=== PATIENT | female | born 1955 | race Caucasian/White ===

== ENCOUNTER → 2017-02-08 | Outpatient (CLI) | payer OTHER ==
--- NOTE | ~2017-02-08 | BD1 ---
[facility] A Service [facility] RADIOLOGY TEXT RESULTS PATIENT: MATTHEW CHO LOCATION: [facility] : 51 UNIT #: [id number] AGE: [address]: Kennedy Tamayo MD SEX: F ORDER DR: [id number] [facility] [address] [place], [place] [address] [id number] O MR#: [id number] Acc #: [id number] NAME: MATTHEW CHO : 1955 SEX: F STUDY DATE/TIME: 02/08/2017 15:26 UNIT: [facility] ROOM: STUDY DESCRIPTION: BD Dexa Bone Dens 1+ Site Attending Physician: Kennedy Tamayo M.D. Referring Physician: Kennedy Tamayo M.D. Ordering Physician: Kennedy Tamayo M.D. Primary Care Physician: Kennedy Tamayo M.D. MEDICAL IMAGING REPORT This report is preliminary unless electronic signature is present EXAM DXA scan HISTORY Postmenopausal screening for osteoporosis. FINDINGS Bone density assessed utilizing a logic bone densitometer. Total bone density within the lumbar spine was calculated 1.083 g/cm2 with a T-score of 0.3. Total bone density within the proximal left femur was calculated at 1.080 g/cm2 with the T score of 1.1. IMPRESSION 1. Bone density within the lumbar spine and proximal left femur is within 1 standard deviation of the mean and therefore normal. Please note, patient's DXA scan 2009 demonstrated osteopenia but this assessment was made utilizing distal radial measurements which may not be as accurate as overall spine and hip measurements. Dictated by... Rich Shine M.D. THIS IS AN ELECTRONICALLY VERIFIED REPORT Rich Shine M.D. at 02/09/2017 8:00 AM Kurt TD: 02/08/2017 17:21 JOB #: [id number] MEDICAL IMAGING REPORT [facility] A Service [facility] RADIOLOGY TEXT RESULTS PATIENT: MATTHEW CHO [id number] : 51 UNIT #: [id number] AGE: [address]: Kennedy Tamayo MD SEX: F ORDER DR: Page 1 of 1 COPY
== END | disposition home or self-care (01) ==
LOC: CWCC 14:57
DX: M85.80 Other specified disorders of bone density and structure, unspecified site (principal)
CPT/HCPCS: 77080